=== PATIENT | female | born 1950 ===

== ENCOUNTER 2022-11-29 13:59 | Inpatient (IN) | payer MEDICARE, BC ==
[~2022-11-29] VITALS: Ht 160 cm; Wt 65.8 kg
[2022-11-30 16:59] VITALS: BP 139/69
[2022-11-30 17:00] VITALS: BP 139/69
[2022-11-30] MEDS ORDERED: PREGABALIN 50 MG CAPSULE PO SCH (17:30)
[2022-11-30] MEDS ORDERED: REMEDY ESSENTIAL ZINC PASTE 113 GM TOP PRN (17:30)
[2022-11-30] MEDS ORDERED: CELE200C PO (17:52)
[2022-11-30] MEDS ORDERED: TIMO5DRO18 LEFTEYE (17:52)
[2022-11-30] MEDS ORDERED: LOSA50TA39 PO (17:52)
[2022-11-30] MEDS ORDERED: ASCO500C18 PO (17:52)
[2022-11-30] MEDS ORDERED: LIDO1ADH82 TP (17:52)
[2022-11-30] MEDS ORDERED: PREG150C46 PO (17:52)
[2022-11-30] MEDS ORDERED: OXYC10TA49 PO (17:52)
[2022-11-30] MEDS ORDERED: CHOL200059 (17:52)
[2022-11-30] MEDS ORDERED: ATOR10TA PO (17:52)
[2022-11-30] MEDS ORDERED: PANT40TA49 PO (17:52)
[2022-11-30] MEDS ORDERED: FERR-56 PO (17:52)
[2022-11-30] MEDS ORDERED: CYCL10TA9 PO (17:52)
[2022-11-30] MEDS ORDERED: MULT-594 PO (17:52)
[2022-11-30] MEDS ORDERED: LEVO100T10 PO (17:52)
[2022-11-30] MEDS ORDERED: CITA40TA22 PO (17:52)
[2022-11-30] MEDS ORDERED: TAMS-3 PO (17:52)
[2022-11-30] MEDS ORDERED: HYDR-3980 PO (17:52)
[2022-11-30] MEDS: CYCLOBENZAPRINE HCL 10 MG TABLET PO SCH (18:03)
[2022-11-30] MEDS: PREGABALIN 25 MG CAPSULE PO SCH (18:04)
[2022-11-30] MEDS: OXYCODONE HCL 5 MG TABLET PO PRN (18:12)
[2022-11-30] MEDS ORDERED: ACET-3117 PO (19:49)
[2022-11-30 20:00] VITALS: BP 129/73
--- NOTE | 2022-11-30 20:59 | NUR ---
RN RECEIVED REPORT FROM GAURAV GONSALES, FROM [facility]. PATIENT ARRIVED ONTO UNIT AT 1600. PATIENT IS ALERT AND ORIENTED X4 AND VITAL SIGNS STABLE. ADMISSION PHOTOS TAKEN. DRESSING CHANGES DONE. WOUND CONSULT ORDERED. SMALL BOWEL MOVEMENT NOTED. PATIENT TOLERATES PO MEDICATIONS AND DIET WELL. PATIENT ORIENTED TO ROOM AND REHAB PROGRAM. PATIENT VERBALIZED UNDERSTANDING. ALL QUESTIONS ANSWERED. PATIENT'S FAMILY VISITED. ORDERS INPUTED PER ERICKA. NOTIFIED DR. SHIRA ARCE REGARDING PAIN MEDICATIONS. ORDERS CARRIED OUT. NOTIFIED HOSPITALIST MD, DR. BRASHER, REGARDING MEDICATION RECONCILIATION. MD ACKNOWLEDGED. PATIENT COMPLAINED OF PAIN. RN GAVE PAIN MEDICATIONS ORDERED. ADMISSION COMPLETED. NO ACUTE DISTRESS NOTED. ALL NEEDS MET AT THIS TIME. RN ENDORSED CONTINUATION OF CARE TO GAURAV SELBY, FOR THE CONTINUATION OF CARE.
--- NOTE | 2022-11-30 22:12 | NUR ---
Patient in bed awake alert and oriented x4, complained of burning in her mouth and around her lips, noted with few white lesions in her cheek and under the tongue. No fever. Dr. Adams notified with new order Nystatin swish and swallow and viscus lidocaine 2% prn for pain. Oral care provided. Needs assessed and attended to.
[2022-11-30] MEDS: ACETAMINOPHEN 325 MG TABLET PO PRN (22:25)
[2022-11-30] MEDS: NYSTATIN SUSPENSION 5 ML LIQUID UDC PO SCH (22:40)
[2022-12-01] MEDS ORDERED: LIDOCAINE VISCUS 2% 15 ML UDC MM PRN (00:30)
[2022-12-01] MEDS: OXYCODONE HCL 5 MG TABLET PO PRN ×4 (00:58→17:19)
[2022-12-01 04:00] VITALS: BP 151/74
[2022-12-01] MEDS: ACETAMINOPHEN 325 MG TABLET PO PRN ×3 (04:28→18:56)
[2022-12-01] MEDS: LEVOTHYROXINE SODIUM 100 MCG TABLET PO SCH (06:57)
[2022-12-01 08:14] VITALS: BP 140/67
[2022-12-01] MEDS: CYCLOBENZAPRINE HCL 10 MG TABLET PO SCH ×3 (09:23→17:10)
[2022-12-01] MEDS: PREGABALIN 25 MG CAPSULE PO SCH ×3 (09:23→17:10)
[2022-12-01] MEDS: NYSTATIN SUSPENSION 5 ML LIQUID UDC PO SCH ×4 (09:24→20:44)
[2022-12-01] MEDS ORDERED: Medication Not On Formulary EA (Acetaminophen 1 TAB) PO PRN (14:45)
[2022-12-01 14:56] VITALS: BP 110/50
[2022-12-01] MEDS ORDERED: CYCLOBENZAPRINE HCL 10 MG TABLET PO SCH (17:00)
[2022-12-01] MEDS ORDERED: PREGABALIN 150 MG PO SCH (17:00)
[2022-12-01] MEDS ORDERED: DOCUSATE SODIUM 250 MG CAPSULE PO PRN (18:00)
[2022-12-01] MEDS: PANTOPRAZOLE SODIUM 40 MG TABLET.DR PO SCH (18:56)
[2022-12-01 20:07] VITALS: BP 134/58
[2022-12-01] MEDS: DOCUSATE SODIUM 250 MG CAPSULE PO SCH (20:42)
[2022-12-01] MEDS: ATORVASTATIN 10 MG TABLET PO SCH (20:42)
[2022-12-01] MEDS: MORPHINE SULFATE SR 15 MG TABLET.SA PO SCH (20:42)
[2022-12-02] MEDS: OXYCODONE HCL 5 MG TABLET PO PRN ×4 (00:28→19:06)
[2022-12-02 04:20] VITALS: BP 138/71
[2022-12-02] MEDS: PANTOPRAZOLE SODIUM 40 MG TABLET.DR PO SCH ×2 (06:33→19:02)
[2022-12-02] MEDS: LEVOTHYROXINE SODIUM 100 MCG TABLET PO SCH (06:33)
[2022-12-02 08:34] VITALS: BP 130/67
[2022-12-02] MEDS: NYSTATIN SUSPENSION 5 ML LIQUID UDC PO SCH ×4 (08:48→21:11)
[2022-12-02] MEDS: FERROUS SULFATE 325 MG TABEC PO SCH (08:49)
[2022-12-02] MEDS: PREGABALIN 25 MG CAPSULE PO SCH ×3 (08:49→16:51)
[2022-12-02] MEDS: MULTIVITAMINS,THERAPEUTIC TABLET PO SCH (08:49)
[2022-12-02] MEDS: CYCLOBENZAPRINE HCL 10 MG TABLET PO SCH ×3 (08:49→16:51)
[2022-12-02] MEDS: CELECOXIB 200 MG CAPSULE PO SCH (08:49)
[2022-12-02] MEDS: TIMOLOL MALEATE 0.5% OPHT DROP 5 ML BOTTLE LEFTEYE SCH (08:53)
[2022-12-02] MEDS: CITALOPRAM 20 MG TABLET PO SCH (08:54)
[2022-12-02] MEDS: MORPHINE SULFATE SR 15 MG TABLET.SA PO SCH ×2 (08:55→21:08)
[2022-12-02] MEDS ORDERED: TIMOLOL MALEATE 0.5% OPHT DROP 5 ML BOTTLE LEFTEYE SCH (09:00)
[2022-12-02] MEDS ORDERED: LEVOTHYROXINE SODIUM 100 MCG TABLET PO SCH (09:00)
[2022-12-02] MEDS: ACETAMINOPHEN 325 MG TABLET PO PRN (12:56)
[2022-12-02 15:46] VITALS: BP 117/55
[2022-12-02 20:00] VITALS: BP 126/73
[2022-12-02] MEDS: ATORVASTATIN 10 MG TABLET PO SCH (21:08)
[2022-12-02] MEDS: TAMSULOSIN HCL 0.4 MG CAP.SR.24H PO SCH (21:08)
[2022-12-02] MEDS: LOSARTAN POTASSIUM 50 MG TABLET PO SCH (21:09)
[2022-12-02] MEDS: DOCUSATE SODIUM 250 MG CAPSULE PO SCH (21:09)
[2022-12-03] MEDS: OXYCODONE HCL 5 MG TABLET PO PRN ×4 (00:30→17:35)
[2022-12-03 04:00] VITALS: BP 145/76
[2022-12-03] MEDS: LEVOTHYROXINE SODIUM 100 MCG TABLET PO SCH (06:30)
[2022-12-03] MEDS: PANTOPRAZOLE SODIUM 40 MG TABLET.DR PO SCH ×2 (06:30→19:53)
[2022-12-03] MEDS: ACETAMINOPHEN 325 MG TABLET PO PRN ×3 (07:00→23:23)
--- NOTE | 2022-12-03 07:07 | NUR ---
Medicated 3x for pain with help. Patient complaining that her pain medication wasn't enough to relieve her pain this morning. Instructed patient that I'll endorse to oncoming nurse to inform her PMD. All needs attended and met. VS stable. No acute respiratory distress. Continue care as planned.
[2022-12-03 07:52] VITALS: BP 148/70
[2022-12-03] MEDS: CELECOXIB 200 MG CAPSULE PO SCH (08:22)
[2022-12-03] MEDS: CITALOPRAM 20 MG TABLET PO SCH (08:22)
[2022-12-03] MEDS: CYCLOBENZAPRINE HCL 10 MG TABLET PO SCH ×3 (08:22→16:53)
[2022-12-03] MEDS: PREGABALIN 25 MG CAPSULE PO SCH ×3 (08:22→16:53)
[2022-12-03] MEDS: MULTIVITAMINS,THERAPEUTIC TABLET PO SCH (08:22)
[2022-12-03] MEDS: NYSTATIN SUSPENSION 5 ML LIQUID UDC PO SCH ×4 (08:23→20:39)
[2022-12-03] MEDS: FERROUS SULFATE 325 MG TABEC PO SCH (08:23)
[2022-12-03] MEDS: LOSARTAN POTASSIUM 50 MG TABLET PO SCH ×2 (08:28→20:40)
[2022-12-03] MEDS: MORPHINE SULFATE SR 15 MG TABLET.SA PO SCH ×2 (08:31→20:40)
[2022-12-03] MEDS: TIMOLOL MALEATE 0.5% OPHT DROP 5 ML BOTTLE LEFTEYE SCH (08:31)
--- NOTE | 2022-12-03 13:30 | NUR ---
WOUND CARE CONSULT: PT PRESENTS WITH CLOSED SURGICAL INCISIONS TO BACK AND LEFT WAIST/FLANK AREA, PRESENT ON ADMISSION. RECOMMEND SURGICAL FOLLOW UP. PT IS CONTINENT AND ABLE TO ASSIST WITH TURNING AND REPOSITIONING. DISCUSSED SKIN PROTECTION WITH NURSING STAFF. IN AGREEMENT WITH PLAN OF CARE. Addendum: 12/03/22 at 1332 by LIZZ ROCHA RN CLOSED INCISION WITH STERI STRIPS ALSO NOTED TO ABDOMEN, PRESENT ON ADMISSION.
--- NOTE | 2022-12-03 15:10 | NUR ---
INDIVIDUALIZED PLAN OF CARE
[2022-12-03 16:00] VITALS: BP 115/64
[2022-12-03 20:00] VITALS: BP 126/70
[2022-12-03] MEDS: TAMSULOSIN HCL 0.4 MG CAP.SR.24H PO SCH (20:39)
[2022-12-03] MEDS: DOCUSATE SODIUM 250 MG CAPSULE PO SCH (20:40)
[2022-12-03] MEDS: ATORVASTATIN 10 MG TABLET PO SCH (20:41)
[2022-12-04] MEDS: OXYCODONE HCL 5 MG TABLET PO PRN ×4 (01:04→19:54)
--- NOTE | 2022-12-04 03:58 | NUR ---
Crying for severe pain, medicated with Oxycodon a little bit earlier as scheduled to help ease the pain. Will monitor for the therapeutic effect.
--- NOTE | 2022-12-04 05:24 | NUR ---
Slept in between care. Medicated as needed for pain with relief. Made comfortable at all times. All needs attended and met. Continue current plan of care. VS stable.
[2022-12-04 05:33] VITALS: BP 106/69
[2022-12-04] MEDS: PANTOPRAZOLE SODIUM 40 MG TABLET.DR PO SCH ×2 (06:13→19:53)
[2022-12-04] MEDS: LEVOTHYROXINE SODIUM 100 MCG TABLET PO SCH (06:13)
[2022-12-04] MEDS: ACETAMINOPHEN 325 MG TABLET PO PRN ×2 (07:01→16:27)
[2022-12-04 07:19] LABS: HEMATOCRIT 26.7 % (31.2-41.9); MEAN CORPUSCULAR HEMOGLOBIN 29.5 uug (24.7-32.8); MEAN CORPUSCULAR VOLUME 88.5 fL (75.5-95.3); PLATELET COUNT (AUTO) 526 K/uL (179-408)
[2022-12-04 08:04] VITALS: BP 140/68
[2022-12-04 08:09] LABS: ALANINE AMINOTRANSFERASE 39 U/L (14-59); ALKALINE PHOSPHATASE 143 U/L (50-136); ASPARTATE AMINOTRANSFERASE 37 U/L (15-37); BILIRUBIN,TOTAL 0.2 mg/dL (0.2-1.0); CARBON DIOXIDE 31 mmol/L (21-32); CHLORIDE 101 mmol/L (98-107); CHOLESTEROL 137 mg/dL (<200); CREATININE 0.8 mg/dL (0.6-1.3); GLUCOSE 95 mg/dL (74-106); HDL CHOLESTEROL 41 mg/dL (40-60); MAGNESIUM 2.2 mg/dL (1.8-2.4); PHOSPHOROUS 3.5 mg/dL (2.5-4.9); POTASSIUM 4.3 mmol/L (3.5-5.1); TOTAL PROTEIN, SERUM 6.4 g/dL (6.4-8.2); TRIGLYCERIDES 128 MG/DL (30-150); UREA NITROGEN, BLOOD 9 mg/dL (7-18)
[2022-12-04] MEDS: FERROUS SULFATE 325 MG TABEC PO SCH (08:32)
[2022-12-04] MEDS: PREGABALIN 25 MG CAPSULE PO SCH ×3 (08:32→16:27)
[2022-12-04] MEDS: CYCLOBENZAPRINE HCL 10 MG TABLET PO SCH ×3 (08:32→16:27)
[2022-12-04] MEDS: CITALOPRAM 20 MG TABLET PO SCH (08:32)
[2022-12-04] MEDS: MULTIVITAMINS,THERAPEUTIC TABLET PO SCH (08:33)
[2022-12-04] MEDS: MORPHINE SULFATE SR 15 MG TABLET.SA PO SCH ×2 (08:33→23:22)
[2022-12-04] MEDS: CELECOXIB 200 MG CAPSULE PO SCH (08:33)
[2022-12-04] MEDS: LOSARTAN POTASSIUM 50 MG TABLET PO SCH ×2 (08:33→20:25)
[2022-12-04] MEDS: NYSTATIN SUSPENSION 5 ML LIQUID UDC PO SCH ×4 (08:34→20:25)
[2022-12-04] MEDS: ENSURE ENLIVE (VAN) 240 ML LIQUID PO SCH (08:35)
[2022-12-04] MEDS: TIMOLOL MALEATE 0.5% OPHT DROP 5 ML BOTTLE LEFTEYE SCH (08:42)
--- NOTE | 2022-12-04 10:51 | NUR ---
0730-Patient in bed, awake, HOB elevated. No respiratory distress/SOB noted. Patient denies pain. Safety measures in place and call light within reach. 0900-All scheduled medication administered at this time. Oral fluids taken well. Patient continues eating breakfast, supervision and assist provided as needed. 1000-Patient OOB with therapy and to rehab for her session as scheduled. Patient ambulatory uses FWW w/ and actively able to participate in her therapy. Safety precaution reminders provided as needed.
--- NOTE | 2022-12-04 15:33 | NUR ---
INTERDISCIPLINARY TEAM CONFERENCE
[2022-12-04 15:58] VITALS: BP 100/60
[2022-12-04] MEDS ORDERED: FUROSEMIDE 20 MG TABLET PO ONE (16:00)
--- NOTE | 2022-12-04 19:55 | NUR ---
Complaining of severe pain at this time, in the verge of crying and restless, Oxy IR was given at this time as per patient choice. Will hold MS Contin for now for its due at 2100. Patient made aware. Will continue to monitor.
[2022-12-04 20:00] VITALS: BP 121/67
[2022-12-04] MEDS: TAMSULOSIN HCL 0.4 MG CAP.SR.24H PO SCH (20:25)
[2022-12-04] MEDS: DOCUSATE SODIUM 250 MG CAPSULE PO SCH (20:25)
[2022-12-04] MEDS: ATORVASTATIN 10 MG TABLET PO SCH (20:25)
--- NOTE | 2022-12-04 23:00 | NUR ---
Endorsed patient to receiving nurse.
[2022-12-05] MEDS: OXYCODONE HCL 5 MG TABLET PO PRN ×3 (03:55→18:09)
[2022-12-05 04:42] VITALS: BP 134/68
--- NOTE | 2022-12-05 07:30 | NUR ---
Patient in bed awake alert and oriented x4. Needs assessed and attended to call light with in reach
[2022-12-05 07:47] VITALS: BP 118/64
[2022-12-05] MEDS: LEVOTHYROXINE SODIUM 100 MCG TABLET PO SCH (08:37)
[2022-12-05] MEDS: PANTOPRAZOLE SODIUM 40 MG TABLET.DR PO SCH ×2 (08:37→18:03)
--- NOTE | 2022-12-05 08:43 | NUR ---
ENDORSED IN [facility]IR [id number],MEDICATED FOR LOW BACK PAIN .REPOSITIONED FOR COMFORT.
[2022-12-05] MEDS: PREGABALIN 25 MG CAPSULE PO SCH ×3 (09:26→16:10)
[2022-12-05] MEDS: LOSARTAN POTASSIUM 50 MG TABLET PO SCH ×2 (09:26→20:34)
[2022-12-05] MEDS: NYSTATIN SUSPENSION 5 ML LIQUID UDC PO SCH ×4 (09:26→20:33)
[2022-12-05] MEDS: CITALOPRAM 20 MG TABLET PO SCH (09:26)
[2022-12-05] MEDS: CYCLOBENZAPRINE HCL 10 MG TABLET PO SCH ×3 (09:26→16:10)
[2022-12-05] MEDS: FERROUS SULFATE 325 MG TABEC PO SCH (09:26)
[2022-12-05] MEDS: CELECOXIB 200 MG CAPSULE PO SCH (09:26)
[2022-12-05] MEDS: MULTIVITAMINS,THERAPEUTIC TABLET PO SCH (09:26)
[2022-12-05] MEDS: ENSURE ENLIVE (VAN) 240 ML LIQUID PO SCH (09:31)
[2022-12-05] MEDS: MORPHINE SULFATE SR 15 MG TABLET.SA PO SCH ×2 (09:31→20:33)
[2022-12-05] MEDS: TIMOLOL MALEATE 0.5% OPHT DROP 5 ML BOTTLE LEFTEYE SCH (11:27)
[2022-12-05 16:07] VITALS: BP 120/72
[2022-12-05 20:00] VITALS: BP 153/78
[2022-12-05] MEDS: ATORVASTATIN 10 MG TABLET PO SCH (20:33)
[2022-12-05] MEDS: TAMSULOSIN HCL 0.4 MG CAP.SR.24H PO SCH (20:33)
[2022-12-05] MEDS: DOCUSATE SODIUM 250 MG CAPSULE PO SCH (20:33)
[2022-12-06] VITALS: BP 142/73
[2022-12-06] MEDS: OXYCODONE HCL 5 MG TABLET PO PRN ×2 (01:12→05:19)
[2022-12-06 04:00] VITALS: BP 142/72
[2022-12-06] MEDS: LEVOTHYROXINE SODIUM 100 MCG TABLET PO SCH (06:36)
[2022-12-06] MEDS: PANTOPRAZOLE SODIUM 40 MG TABLET.DR PO SCH ×2 (06:36→18:53)
[2022-12-06 07:58] VITALS: BP 136/55
[2022-12-06] MEDS: PREGABALIN 25 MG CAPSULE PO SCH ×3 (08:43→17:49)
[2022-12-06] MEDS: MULTIVITAMINS,THERAPEUTIC TABLET PO SCH (08:44)
[2022-12-06] MEDS: ENSURE ENLIVE (VAN) 240 ML LIQUID PO SCH (08:44)
[2022-12-06] MEDS: CITALOPRAM 20 MG TABLET PO SCH (08:44)
[2022-12-06] MEDS: CELECOXIB 200 MG CAPSULE PO SCH (08:44)
[2022-12-06] MEDS: CYCLOBENZAPRINE HCL 10 MG TABLET PO SCH ×3 (08:44→17:49)
[2022-12-06] MEDS: FERROUS SULFATE 325 MG TABEC PO SCH (08:44)
[2022-12-06] MEDS: LOSARTAN POTASSIUM 50 MG TABLET PO SCH ×2 (08:45→20:37)
[2022-12-06] MEDS: MORPHINE SULFATE SR 15 MG TABLET.SA PO SCH ×2 (08:45→20:37)
[2022-12-06] MEDS: NYSTATIN SUSPENSION 5 ML LIQUID UDC PO SCH ×4 (08:46→20:37)
[2022-12-06] MEDS: TIMOLOL MALEATE 0.5% OPHT DROP 5 ML BOTTLE LEFTEYE SCH (08:46)
[2022-12-06] MEDS: FUROSEMIDE 20 MG TABLET PO SCH (13:31)
[2022-12-06] MEDS: ACETAMINOPHEN 325 MG TABLET PO PRN (16:09)
[2022-12-06 16:16] VITALS: BP 93/51
--- NOTE | 2022-12-06 19:44 | NUR ---
NSG: Received patient lying in bed. alert and oriented x4, denies pain or discomfort at this time. call light with in reach. continue plan of care.
[2022-12-06 20:00] VITALS: BP 110/68
--- NOTE | 2022-12-06 20:06 | NUR ---
RN RECEIVED REPORT FROM GAURAV BRIGGS, NOC SHIFT. PATIENT IS ALERT AND ORIENTED X4 AND VITAL SIGNS STABLE. PATIENT COMPLAINED OF PAIN. RN GAVE PAIN MEDICATIONS ORDERED.DRESSING CHANGES DONE. PATIENT TOLERATES PO MEDICATIONS AND DIET WELL. PATIENT PARTICIPATES WITH PHYSICAL AND OCCUPATIONAL THERAPY SCHEDULED. PATIENT'S FAMILY VISITED. RN NOTIFIED HOSPITALIST OF PATIENT'S PITTING EDEMA ON BOTH FOOT. ORDERS CARRIED OUT DIRECTED. NO ACUTE DISTRESS NOTED. ALL NEEDS MET AT THIS TIME. RN ENDORSED CONTINUATION OF CARE TO GAURAV LEE, FOR THE CONTINUATION OF CARE.
[2022-12-06] MEDS: ATORVASTATIN 10 MG TABLET PO SCH (20:36)
[2022-12-06] MEDS: DOCUSATE SODIUM 250 MG CAPSULE PO SCH (20:36)
[2022-12-06] MEDS: TAMSULOSIN HCL 0.4 MG CAP.SR.24H PO SCH (20:36)
[2022-12-07] MEDS: ACETAMINOPHEN 325 MG TABLET PO PRN ×2 (01:09→14:47)
--- NOTE | 2022-12-07 01:09 | NUR ---
NSG: RESTING IN BED. C/O PAIN,TYLENOL 650 MG PO GIVEN.
[2022-12-07] MEDS: OXYCODONE HCL 5 MG TABLET PO PRN (02:48)
--- NOTE | 2022-12-07 02:48 | NUR ---
patient c/o pain, stated Tylenol did not work for my pain i need deferent pain meds. oxyir prn for pain given.
--- NOTE | 2022-12-07 03:48 | NUR ---
patient resting comfortably. prn for pain effective.
[2022-12-07 04:00] VITALS: BP 133/56
[2022-12-07] MEDS: PANTOPRAZOLE SODIUM 40 MG TABLET.DR PO SCH ×2 (06:05→18:14)
[2022-12-07] MEDS: LEVOTHYROXINE SODIUM 100 MCG TABLET PO SCH (06:05)
--- NOTE | 2022-12-07 06:10 | NUR ---
nsg: resting in bed comfortably. denies pain or discomfort at this time. call light w/in reach.
[2022-12-07 07:48] VITALS: BP 136/67
[2022-12-07] MEDS: CELECOXIB 200 MG CAPSULE PO SCH (08:03)
[2022-12-07] MEDS: CITALOPRAM 20 MG TABLET PO SCH (08:03)
[2022-12-07] MEDS: PREGABALIN 25 MG CAPSULE PO SCH ×3 (08:03→16:41)
[2022-12-07] MEDS: CYCLOBENZAPRINE HCL 10 MG TABLET PO SCH ×3 (08:03→16:41)
[2022-12-07] MEDS: MORPHINE SULFATE SR 15 MG TABLET.SA PO SCH ×2 (08:04→21:15)
[2022-12-07] MEDS: FUROSEMIDE 20 MG TABLET PO SCH (08:04)
[2022-12-07] MEDS: LOSARTAN POTASSIUM 50 MG TABLET PO SCH ×2 (08:04→21:10)
[2022-12-07] MEDS: MULTIVITAMINS,THERAPEUTIC TABLET PO SCH (08:04)
[2022-12-07] MEDS: NYSTATIN SUSPENSION 5 ML LIQUID UDC PO SCH ×4 (08:04→21:09)
[2022-12-07] MEDS: ENSURE ENLIVE (VAN) 240 ML LIQUID PO SCH (08:05)
[2022-12-07] MEDS: FERROUS SULFATE 325 MG TABEC PO SCH (08:05)
[2022-12-07] MEDS: TIMOLOL MALEATE 0.5% OPHT DROP 5 ML BOTTLE LEFTEYE SCH (08:06)
[2022-12-07 16:19] VITALS: BP 115/58
--- NOTE | 2022-12-07 19:50 | NUR ---
RN RECEIVED REPORT FROM GAURAV LEE, NOC SHIFT. PATIENT IS ALERT AND ORIENTED X4 AND VITAL SIGNS STABLE. PATIENT COMPLAINED OF PAIN. RN GAVE PAIN MEDICATIONS ORDERED. DRESSING CHANGES DONE. PATIENT TOLERATES PO MEDICATIONS AND DIET WELL. PATIENT PARTICIPATES WITH PHYSICAL AND OCCUPATIONAL THERAPY SCHEDULED. PATIENT'S FAMILY VISITED. ORDERED SPINAL LUMBAR X-RAY REQUESTED BY SURGEON FOR FOLLOW UP MEETING ON FRIDAY. NO ACUTE DISTRESS NOTED. ALL NEEDS MET AT THIS TIME. CALL LIGHT WITHIN REACH. RN ENDORSED CONTINUATION OF CARE TO GAURAV SCHRADER, FOR THE CONTINUATION OF CARE.
[2022-12-07 20:20] VITALS: BP 111/64
[2022-12-07] MEDS: DOCUSATE SODIUM 250 MG CAPSULE PO SCH (21:09)
[2022-12-07] MEDS: ATORVASTATIN 10 MG TABLET PO SCH (21:09)
[2022-12-07] MEDS: TAMSULOSIN HCL 0.4 MG CAP.SR.24H PO SCH (21:10)
[2022-12-08] MEDS: ACETAMINOPHEN 325 MG TABLET PO PRN (01:54)
[2022-12-08] MEDS: OXYCODONE HCL 5 MG TABLET PO PRN (03:39)
[2022-12-08 04:00] VITALS: BP 137/58
[2022-12-08] MEDS: PANTOPRAZOLE SODIUM 40 MG TABLET.DR PO SCH ×2 (06:31→18:00)
[2022-12-08] MEDS: LEVOTHYROXINE SODIUM 100 MCG TABLET PO SCH (06:31)
[2022-12-08 08:00] VITALS: BP 126/57
[2022-12-08] MEDS: MULTIVITAMINS,THERAPEUTIC TABLET PO SCH (08:00)
[2022-12-08] MEDS: FERROUS SULFATE 325 MG TABEC PO SCH (08:00)
[2022-12-08] MEDS: PREGABALIN 25 MG CAPSULE PO SCH ×3 (08:00→17:11)
[2022-12-08] MEDS: CELECOXIB 200 MG CAPSULE PO SCH (08:00)
[2022-12-08] MEDS: LOSARTAN POTASSIUM 50 MG TABLET PO SCH ×2 (08:01→20:11)
[2022-12-08] MEDS: CITALOPRAM 20 MG TABLET PO SCH (08:01)
[2022-12-08] MEDS: MORPHINE SULFATE SR 15 MG TABLET.SA PO SCH ×2 (08:01→20:11)
[2022-12-08] MEDS: FUROSEMIDE 20 MG TABLET PO SCH (08:02)
[2022-12-08] MEDS: NYSTATIN SUSPENSION 5 ML LIQUID UDC PO SCH ×4 (08:02→20:11)
[2022-12-08] MEDS: TIMOLOL MALEATE 0.5% OPHT DROP 5 ML BOTTLE LEFTEYE SCH (08:02)
[2022-12-08] MEDS: CYCLOBENZAPRINE HCL 10 MG TABLET PO SCH ×3 (08:03→17:11)
[2022-12-08] MEDS: ENSURE ENLIVE (VAN) 240 ML LIQUID PO SCH (08:03)
[2022-12-08 12:00] VITALS: BP 102/51
[2022-12-08 16:00] VITALS: BP 97/49
--- NOTE | 2022-12-08 18:40 | NUR ---
patient is alert, oriented x4, no sob, respirations are even nonlabored, skin warm and dry to touch, patient is being helped and assisted constantly as patient calls for help. this junior technical writer assisted patient to the bathroom, this junior technical writer gave patient new shocks, put them on, brought patient wash cloth, gave patient prune juice, gave three times pain medications and scheduled medications as ordered. monitored for effectiveness of pain medications, patient stated when she takes Lyrica and Flexeril together it helps her a lot. this junior technical writer explained side effects of Lyrica and Flexeril and morphine sulphate. patient stated she does not experience any side effects from them. patient is able to ambulate [facility] by herself and able to do her adls safely. most of the time patient is sitting edge of the bed, side table in front of her. patient likes to keep her personal belongings on the bed next to her. nurse assistance was with patient in her room multiple times as well to assist her with adls and to the restroom, three meals provided on time. patient also worked with PT, OT as well and tolerated well. patient incision dressing changed, incision is dry and clean, well approximated no drainage noted. all appropriate needs met timely.
[2022-12-08 20:00] VITALS: BP 132/56
[2022-12-08] MEDS: TAMSULOSIN HCL 0.4 MG CAP.SR.24H PO SCH (20:11)
[2022-12-08] MEDS: DOCUSATE SODIUM 250 MG CAPSULE PO SCH (20:11)
[2022-12-08] MEDS: ATORVASTATIN 10 MG TABLET PO SCH (20:11)
[2022-12-09] MEDS: OXYCODONE HCL 5 MG TABLET PO PRN ×2 (00:18→04:51)
[2022-12-09 05:56] VITALS: BP 133/67
--- NOTE | 2022-12-09 06:12 | NUR ---
Shift End Report: Medicated twice with OxyIr with help. Slept in between. No further complaint resented. Continue care as planned.
[2022-12-09] MEDS: PANTOPRAZOLE SODIUM 40 MG TABLET.DR PO SCH ×2 (06:32→18:29)
[2022-12-09] MEDS: LEVOTHYROXINE SODIUM 100 MCG TABLET PO SCH (06:32)
[2022-12-09 08:00] VITALS: BP 125/63
[2022-12-09] MEDS: PREGABALIN 25 MG CAPSULE PO SCH ×3 (09:03→16:05)
[2022-12-09] MEDS: LOSARTAN POTASSIUM 50 MG TABLET PO SCH ×2 (09:03→21:00)
[2022-12-09] MEDS: CITALOPRAM 20 MG TABLET PO SCH (09:03)
[2022-12-09] MEDS: FERROUS SULFATE 325 MG TABEC PO SCH (09:03)
[2022-12-09] MEDS: MULTIVITAMINS,THERAPEUTIC TABLET PO SCH (09:03)
[2022-12-09] MEDS: FUROSEMIDE 20 MG TABLET PO SCH (09:04)
[2022-12-09] MEDS: CELECOXIB 200 MG CAPSULE PO SCH (09:04)
[2022-12-09] MEDS: CYCLOBENZAPRINE HCL 10 MG TABLET PO SCH ×3 (09:04→16:06)
[2022-12-09] MEDS: MORPHINE SULFATE SR 15 MG TABLET.SA PO SCH ×2 (09:04→20:59)
[2022-12-09] MEDS: NYSTATIN SUSPENSION 5 ML LIQUID UDC PO SCH ×4 (09:05→20:58)
[2022-12-09] MEDS: ENSURE ENLIVE (VAN) 240 ML LIQUID PO SCH (09:05)
[2022-12-09] MEDS: TIMOLOL MALEATE 0.5% OPHT DROP 5 ML BOTTLE LEFTEYE SCH (09:06)
--- NOTE | 2022-12-09 11:28 | NUR ---
0730-REC'D PATIENT IN BED, AWAKE, ALERT/OX4. PATIENT VERBALIZES HER NEEDS AND FOLLOWS DIRECTIONS, NO RESPIRATORY DISTRESS; PATIENT DENIES PAIN. SAFETY MEASURES IN PLACE AND CALL LIGHT WITHIN REACH. 0900-SCHEDULED MEDICATIONS ADMINISTERED ORDERED NO ASE NOTED, ORAL FLUIDS TAKEN WELL. PATIENT COMPLIANT WITH HER TREATMENT AND CARE. 1030-PATIENT WAS SEEN BY [employer] WITH ORDERS TO HER SACRAL DTI GIVEN AND CARRIED OUT.
[2022-12-09 15:55] VITALS: BP 113/56
[2022-12-09] MEDS: ACETAMINOPHEN 325 MG TABLET PO PRN (16:06)
--- NOTE | 2022-12-09 18:41 | NUR ---
Assisted patient with her ADLs during the shift. No EVIN from her baseline. Continues under rehab skilled services and actively able to participate in therapy. Continent with BRP, assisted to the bathroom as needed. All needs anticipated and met.
[2022-12-09 20:00] VITALS: BP 115/60
[2022-12-09] MEDS: TAMSULOSIN HCL 0.4 MG CAP.SR.24H PO SCH (20:58)
[2022-12-09] MEDS: DOCUSATE SODIUM 250 MG CAPSULE PO SCH (20:58)
[2022-12-09] MEDS: ATORVASTATIN 10 MG TABLET PO SCH (20:58)
[2022-12-10] MEDS: ACETAMINOPHEN 325 MG TABLET PO PRN (03:46)
[2022-12-10 04:00] VITALS: BP 125/65
[2022-12-10] MEDS: OXYCODONE HCL 5 MG TABLET PO PRN ×2 (05:12→17:34)
[2022-12-10] MEDS: LEVOTHYROXINE SODIUM 100 MCG TABLET PO SCH (06:28)
[2022-12-10] MEDS: PANTOPRAZOLE SODIUM 40 MG TABLET.DR PO SCH ×2 (06:28→19:03)
--- NOTE | 2022-12-10 06:46 | NUR ---
Continues under rehab skilled services and slept intermittently through the night. Pt. c/o pain earlier and got Tylenol any Hydrocodone as per Order. Addendum: 12/10/22 at 0655 by REAL DUONG RN Pt bandage was changed this morning
[2022-12-10 08:00] VITALS: BP 113/55
[2022-12-10] MEDS: LOSARTAN POTASSIUM 50 MG TABLET PO SCH ×2 (08:26→20:58)
[2022-12-10] MEDS: MULTIVITAMINS,THERAPEUTIC TABLET PO SCH (08:26)
[2022-12-10] MEDS: CYCLOBENZAPRINE HCL 10 MG TABLET PO SCH ×3 (08:26→16:27)
[2022-12-10] MEDS: PREGABALIN 25 MG CAPSULE PO SCH ×3 (08:26→16:27)
[2022-12-10] MEDS: FUROSEMIDE 20 MG TABLET PO SCH (08:26)
[2022-12-10] MEDS: MORPHINE SULFATE SR 15 MG TABLET.SA PO SCH ×2 (08:26→20:57)
[2022-12-10] MEDS: CELECOXIB 200 MG CAPSULE PO SCH (08:27)
[2022-12-10] MEDS: CITALOPRAM 20 MG TABLET PO SCH (08:27)
[2022-12-10] MEDS: FERROUS SULFATE 325 MG TABEC PO SCH (08:27)
[2022-12-10] MEDS: NYSTATIN SUSPENSION 5 ML LIQUID UDC PO SCH ×4 (08:28→20:56)
[2022-12-10] MEDS: ENSURE ENLIVE (VAN) 240 ML LIQUID PO SCH (08:28)
[2022-12-10] MEDS: TIMOLOL MALEATE 0.5% OPHT DROP 5 ML BOTTLE LEFTEYE SCH (08:30)
--- NOTE | 2022-12-10 09:07 | NUR ---
0730-Patient in bed, awake. A/Ox4, verbalizes needs and follows directions, patient denies pain. no s/s of resp. distress. No unusual observations. Call light within reach. 0900-Patient eating breakfast, sitting at the bedside. No swallowing problems observed. Scheduled medications administered with no ASE noted. Supervision and assist provided as needed.
[2022-12-10] MEDS ORDERED: MAG HYDROX/AL HYDROX/SIMETH 30 ML LIQUID UDC PO PRN (10:15)
[2022-12-10 16:00] VITALS: BP 100/51
--- NOTE | 2022-12-10 18:59 | NUR ---
Patient in usual stable conditions during shift. No changes noted. No unusual findings or happenings. Pain needs addressed promptly and timely as ordered by MD. Assisted with ADLs and at all times. All needs anticipated and met.
[2022-12-10] MEDS: ATORVASTATIN 10 MG TABLET PO SCH (20:58)
[2022-12-10] MEDS: DOCUSATE SODIUM 250 MG CAPSULE PO SCH (20:58)
[2022-12-10] MEDS: TAMSULOSIN HCL 0.4 MG CAP.SR.24H PO SCH (20:58)
[2022-12-11] MEDS: OXYCODONE HCL 5 MG TABLET PO PRN ×2 (01:59→14:42)
--- NOTE | 2022-12-11 05:52 | NUR ---
Patient rested well in between care; no acute distress; repositioned for comfort; call light within reach; safety maintained; assisted with hygiene needs
[2022-12-11] MEDS: LEVOTHYROXINE SODIUM 100 MCG TABLET PO SCH (06:18)
[2022-12-11] MEDS: PANTOPRAZOLE SODIUM 40 MG TABLET.DR PO SCH ×2 (06:18→18:32)
[2022-12-11 08:00] VITALS: BP 102/60
[2022-12-11] MEDS: CITALOPRAM 20 MG TABLET PO SCH (09:01)
[2022-12-11] MEDS: MORPHINE SULFATE SR 15 MG TABLET.SA PO SCH ×2 (09:01→20:55)
[2022-12-11] MEDS: PREGABALIN 25 MG CAPSULE PO SCH ×3 (09:01→22:01)
[2022-12-11] MEDS: CYCLOBENZAPRINE HCL 10 MG TABLET PO SCH ×2 (09:02→12:24)
[2022-12-11] MEDS: LOSARTAN POTASSIUM 50 MG TABLET PO SCH ×2 (09:02→20:52)
[2022-12-11] MEDS: CELECOXIB 200 MG CAPSULE PO SCH (09:02)
[2022-12-11] MEDS: MULTIVITAMINS,THERAPEUTIC TABLET PO SCH (09:02)
[2022-12-11] MEDS: FERROUS SULFATE 325 MG TABEC PO SCH (09:02)
[2022-12-11] MEDS: ENSURE ENLIVE (VAN) 240 ML LIQUID PO SCH (09:03)
[2022-12-11] MEDS: NYSTATIN SUSPENSION 5 ML LIQUID UDC PO SCH ×4 (09:03→20:52)
[2022-12-11] MEDS: TIMOLOL MALEATE 0.5% OPHT DROP 5 ML BOTTLE LEFTEYE SCH (09:06)
--- NOTE | 2022-12-11 14:42 | NUR ---
INTERDISCIPLINARY TEAM CONFERENCE
[2022-12-11 16:10] VITALS: BP 120/53
[2022-12-11] MEDS ORDERED: PREGABALIN 50 MG CAPSULE PO PRN (17:00)
--- NOTE | 2022-12-11 18:56 | NUR ---
Patient A/Ox4, able to make herself understood and follow directions. Pain well controlled/managed with routine/PRN medication as ordered by MD, no ASE noted to medication. Oral fluids encouraged as dony. and taken well. Patient compliant with her treatment and cooperative with care and nursing staff. Requires assist mostly to set up with FWW and supervision during ambulation, continues under rehab and actively involved in therapY. Patient is able to communicate needs promptly and timely, with good appetite, denies GI discomfort. Supervision and assist provided during meal times. Assist provided with personal care/hygiene, continent of both with BRP. Back area and left lat flank surgical sites treatment provided as ordered by MD. no SS of infection or bleeding noted. Clean DD dressing in place and intact, no bleeding or drainage noted. Medication administered through out the shift as scheduled/ordered by MD, patient continues on nystatin for oral thrush, good oral care rendered; patient is able to dony. meals and fluids w/o c/o oral pain/discomfort. All needs anticipated and met. Endorsed to incoming relieving RN.
--- NOTE | 2022-12-11 19:38 | NUR ---
NSG: Received patient lying in bed, awake. A/Ox4, verbalizes needs and follows directions, patient denies pain. no s/s of resp. distress. Call light within reach.
[2022-12-11 20:00] VITALS: BP 137/58
[2022-12-11] MEDS: DOCUSATE SODIUM 250 MG CAPSULE PO SCH (20:51)
[2022-12-11] MEDS: TAMSULOSIN HCL 0.4 MG CAP.SR.24H PO SCH (20:51)
[2022-12-11] MEDS: ATORVASTATIN 10 MG TABLET PO SCH (20:51)
[2022-12-12 04:00] VITALS: BP 124/55
[2022-12-12] MEDS: PREGABALIN 25 MG CAPSULE PO SCH ×3 (05:25→21:33)
--- NOTE | 2022-12-12 06:01 | NUR ---
NSG: pt resting in bed comfortably. denies pain or discomfort at this time. call light w/in reach.
[2022-12-12] MEDS: LEVOTHYROXINE SODIUM 100 MCG TABLET PO SCH (06:06)
[2022-12-12] MEDS: PANTOPRAZOLE SODIUM 40 MG TABLET.DR PO SCH ×2 (06:06→19:06)
[2022-12-12 08:07] VITALS: BP 116/42
[2022-12-12] MEDS: ENSURE ENLIVE (VAN) 240 ML LIQUID PO SCH (08:30)
[2022-12-12] MEDS: MORPHINE SULFATE SR 15 MG TABLET.SA PO SCH ×2 (08:35→20:56)
[2022-12-12] MEDS: FERROUS SULFATE 325 MG TABEC PO SCH (09:00)
[2022-12-12] MEDS: CITALOPRAM 20 MG TABLET PO SCH (09:08)
[2022-12-12] MEDS: MULTIVITAMINS,THERAPEUTIC TABLET PO SCH (09:08)
[2022-12-12] MEDS: NYSTATIN SUSPENSION 5 ML LIQUID UDC PO SCH ×4 (09:08→20:54)
[2022-12-12] MEDS: CELECOXIB 200 MG CAPSULE PO SCH (09:09)
[2022-12-12] MEDS: LOSARTAN POTASSIUM 50 MG TABLET PO SCH ×2 (09:09→20:54)
[2022-12-12] MEDS: TIMOLOL MALEATE 0.5% OPHT DROP 5 ML BOTTLE LEFTEYE SCH (09:13)
[2022-12-12] MEDS: CYCLOBENZAPRINE HCL 10 MG TABLET PO PRN ×2 (10:07→20:54)
[2022-12-12] MEDS: OXYCODONE HCL 5 MG TABLET PO PRN ×2 (12:08→15:53)
[2022-12-12 15:54] VITALS: BP 118/53
--- NOTE | 2022-12-12 16:57 | NUR ---
Unable to do assessment for Oxyir Pt left at 1215 via ambulance to Doctor's appointment.
--- NOTE | 2022-12-12 19:50 | NUR ---
Patient stable transported to Neurologist office today Returned vitals stable. Medicated PRN for pain
[2022-12-12 20:42] VITALS: BP 104/68
[2022-12-12] MEDS: ATORVASTATIN 10 MG TABLET PO SCH (20:54)
[2022-12-12] MEDS: TAMSULOSIN HCL 0.4 MG CAP.SR.24H PO SCH (20:54)
[2022-12-12] MEDS: DOCUSATE SODIUM 250 MG CAPSULE PO SCH (20:55)
[2022-12-13] MEDS: ACETAMINOPHEN 325 MG TABLET PO PRN ×2 (00:33→11:26)
[2022-12-13 04:00] VITALS: BP 136/61
[2022-12-13] MEDS: OXYCODONE HCL 5 MG TABLET PO PRN (04:17)
--- NOTE | 2022-12-13 05:52 | NUR ---
AOx4. Ambulatory with FWW with minimal assist. Pt complained of pain on legs. Tylenol given as ordered. Pt stated no relief. Medicated with Oxyir as ordered. Surgical incisions clean and dry. No acute respiratory distress noted. All needs attended and met. Call light within reach. Safety measures maintained.
[2022-12-13] MEDS: PANTOPRAZOLE SODIUM 40 MG TABLET.DR PO SCH (06:01)
[2022-12-13] MEDS: LEVOTHYROXINE SODIUM 100 MCG TABLET PO SCH (06:01)
[2022-12-13] MEDS: PREGABALIN 25 MG CAPSULE PO SCH ×2 (06:01→14:00)
[2022-12-13 07:47] VITALS: BP 142/69
[2022-12-13] MEDS: CELECOXIB 200 MG CAPSULE PO SCH (08:30)
[2022-12-13] MEDS: FERROUS SULFATE 325 MG TABEC PO SCH (08:30)
[2022-12-13] MEDS: MORPHINE SULFATE SR 15 MG TABLET.SA PO SCH (08:30)
[2022-12-13 08:31] VITALS: BP 142/69
[2022-12-13] MEDS: LOSARTAN POTASSIUM 50 MG TABLET PO SCH (08:31)
[2022-12-13] MEDS: TIMOLOL MALEATE 0.5% OPHT DROP 5 ML BOTTLE LEFTEYE SCH (08:31)
[2022-12-13] MEDS: MULTIVITAMINS,THERAPEUTIC TABLET PO SCH (08:31)
[2022-12-13] MEDS: CITALOPRAM 20 MG TABLET PO SCH (08:31)
[2022-12-13] MEDS: NYSTATIN SUSPENSION 5 ML LIQUID UDC PO SCH ×2 (08:32→12:59)
[2022-12-13] MEDS: ENSURE ENLIVE (VAN) 240 ML LIQUID PO SCH (08:32)
--- NOTE | 2022-12-13 14:33 | NUR ---
patient discharge home, instruction given. Addendum: 12/13/22 at 1438 by GABE GARCIA RN, RN patient ask for lyrica prescription , dr chemo tom aware Addendum: 12/13/22 at 1439 by GABE GARCIA RN, RN patient refused discharge pictures ,stated incision site is clean and dry.
== END 2022-12-13 13:40 | disposition home health service (06) | DRG 560 ==
PROVIDERS: ADMIT Physical Medicine & Rehabilitation Pain Medicine; ATTEND Physical Medicine & Rehabilitation Pain Medicine
DX: Z47.89 Encounter for other orthopedic aftercare (principal); G95.29 Other cord compression; M51.06 Intervertebral disc disorders with myelopathy, lumbar region; E03.9 Hypothyroidism, unspecified; Z98.1 Arthrodesis status; E78.5 Hyperlipidemia, unspecified; M51.36 Other intervertebral disc degeneration, lumbar region; G89.29 Other chronic pain; I10 Essential (primary) hypertension; M19.90 Unspecified osteoarthritis, unspecified site; D64.9 Anemia, unspecified; R53.1 Weakness; E66.9 Obesity, unspecified; Z68.25 Body mass index [BMI] 25.0-25.9, adult; R10.13 Epigastric pain
CPT/HCPCS: 36415; 72110; 83735; 84100; 84443; 85025; 97535-GO-CO; A4663; A6209; A6213

== ENCOUNTER 2022-11-30 16:25 | Emergency (ER) | payer MEDICARE, BC ==
--- NOTE | 2022-11-30 16:38 | NUR ---
Pt was registered to ER by accident, pt is a direct admission to the Rehab Unit on 3rd floor.
[2022-11-30] MEDS ORDERED: MULT-594 PO (17:52)
[2022-11-30] MEDS ORDERED: CITA40TA22 PO (17:52)
[2022-11-30] MEDS ORDERED: LEVO100T10 PO (17:52)
[2022-11-30] MEDS ORDERED: TIMO5DRO18 LEFTEYE (17:52)
[2022-11-30] MEDS ORDERED: HYDR-3980 PO (17:52)
[2022-11-30] MEDS ORDERED: PREG150C46 PO (17:52)
[2022-11-30] MEDS ORDERED: CYCL10TA9 PO (17:52)
[2022-11-30] MEDS ORDERED: OXYC10TA49 PO (17:52)
[2022-11-30] MEDS ORDERED: ASCO500C18 PO (17:52)
[2022-11-30] MEDS ORDERED: LOSA50TA39 PO (17:52)
[2022-11-30] MEDS ORDERED: ATOR10TA PO (17:52)
[2022-11-30] MEDS ORDERED: FERR-56 PO (17:52)
[2022-11-30] MEDS ORDERED: CELE200C PO (17:52)
[2022-11-30] MEDS ORDERED: PANT40TA49 PO (17:52)
[2022-11-30] MEDS ORDERED: TAMS-3 PO (17:52)
[2022-11-30] MEDS ORDERED: CHOL200059 (17:52)
[2022-11-30] MEDS ORDERED: LIDO1ADH82 TP (17:52)
[2022-11-30] MEDS ORDERED: ACET-3117 PO (19:49)
== END 2022-11-30 16:39 | disposition left against medical advice (07) ==
LOC: ER 16:27
DX: Z53.21 Procedure and treatment not carried out due to patient leaving prior to being seen by health care provider (principal)